=== PATIENT | female | born 1985 | race Caucasian/White ===

== ENCOUNTER 2018-01-04 09:41 | Outpatient (CLI) | payer OTHER | END 2018-01-04 09:42 | disposition home or self-care (01) | LOC: BICULT 09:41 | PROVIDERS: ATTEND Nurse Practitioner Family | DX: M79.621 Pain in right upper arm (principal); N64.89 Other specified disorders of breast; Z74.09 Other reduced mobility ==

== ENCOUNTER 2018-03-27 09:18 | Outpatient (CLI) | payer OTHER ==
--- NOTE | 2018-03-27 11:27 | CT ---
CT OF THE ABDOMEN AND PELVIS WITH IV CONTRAST: Date: 03-27-18 Provided Clinical History: Hematochezia. FINDINGS: Comparison 03-15-12. The visualized lung bases are free of significant opacity. The liver, spleen, pancreas, kidneys and adrenal glands demonstrate an unremarkable CT appearance. There is mural thickening noted involving the descending and sigmoid colon as well as the rectum. The re is no bowel dilatation, inflammatory fat stranding, significant free fluid or lymphnode enlargemen t apparent. The appendix appears normal. There is an unusual enhancement pattern to the uterus, which may be on the basis of phase of menstrua tion. The osseous structures demonstrate no concerning lytic or blastic lesions. IMPRESSION: 1. Apparent mural thickening involving the descending colon, sigmoid colon, and rectum compatible wit h colitis/proctitis. Infectious, inflammatory and ischemic etiologies could be considered. 2. Unusual enhancement pattern to the uterus with prominence of the endometrium. This may be on the b asis of days of menstruation. Consider follow up pelvic ultrasound. POS: JAKI
[2018-03-27] MEDS ORDERED: Iopamidol 370 76% 50 ML VIAL FS ONE (14:06)
[2018-03-27] MEDS ORDERED: Iopamidol 370 76% 100 ML VIAL ONE (14:06)
== END 2018-03-27 09:19 | disposition home or self-care (01) ==
LOC: CT 09:18
PROVIDERS: ATTEND Family Medicine
DX: K92.1 Melena (principal); R10.9 Unspecified abdominal pain; D73.5 Infarction of spleen; R10.2 Pelvic and perineal pain
CPT/HCPCS: 74177

== ENCOUNTER 2018-04-17 08:46 | Outpatient (CLI) | payer OTHER ==
--- NOTE | 2018-04-17 16:01 | NM ---
GASTRIC EMPTYING SCAN: Date: 04/17/18 INDICATION: Vomiting and weight loss. RADIOPHARMACEUTICAL: 1.9 mCi technetium-99m sulfur colloid orally with eggs. FINDINGS: There was 47% emptying at 42 minutes. There was 69% emptying at 80 minutes. There was 79% emptying at 137 minutes. There was 84% emptying at the 181 minute time riri. There was 99% emptying at 238 minut es. T-1/2 is 46 minutes. IMPRESSION: Gastric emptying study as above. POS: JAKI
== END 2018-04-17 08:47 | disposition home or self-care (01) ==
LOC: NM 08:46
PROVIDERS: ATTEND Internal Medicine
DX: R11.2 Nausea with vomiting, unspecified (principal); R63.4 Abnormal weight loss
CPT/HCPCS: 78264; A9541

== ENCOUNTER 2018-09-19 08:49 | Emergency (ER) | payer OTHER ==
[2018-09-19] MEDS ORDERED: Meclizine HCl 25 MG TAB ONE (09:30)
[2018-09-19 09:48] LABS: #Basophils 0.1 thou/uL (0.0-0.2); #Eosinphils 0.1 thou/uL (0.0-0.7); #Lymphocytes 3.3 thou/uL (1.20-3.40); #Monocytes 0.5 thou/uL (0.11-0.59); #Neutrophils 5.7 thou/uL (1.40-6.50); %Basophils 1.1 % (0.0-1.0); %Eosinophils 1.3 % (0.0-10.0); %Lymphocytes 33.8 % (21.0-51.0); %Monocytes 5.5 % (0.0-10.0); %Neutrophils 58.4 % (42.0-75.0); Mean Corpuscular HGB CONC 32.5 g/dL (32.0-36.0); Mean Corpuscular Hemoglobin 29.5 pg (27.0-31.0); Mean Corpuscular Volume 90.9 fL (78.0-98.0); Mean Platelet Volume 7.5 fL (7.4-10.4); Platelet Count 270 thou/uL (130-400); RBC Distribution Width 12.3 % (11.5-14.5); Red Blood Cell (RBC) Count 4.74 mill/uL (4.20-5.40); White Blood Cell (WBC) Count 9.8 thou/uL (4.8-10.8)
[2018-09-19 10:04] LABS: Bilirubin Negative (Negative); Blood, Urine Large (Negative); Clarity CLOUDY (Clear); Glucose, Urine (Dipstick) Negative (Negative); Leukocyte Trace (Negative); Nitrite Negative (Negative); Protein, Urine (Dipstick) Trace mg/dL (Neg-Trace); Specific Gravity, Urine 1.012 (1.002-1.036); Urobilinogen 0.2 mg/dL (0.2-1.0)
[2018-09-19 10:06] LABS: Bacteria/HPF None Seen HPF (None Seen); Hyaline Casts/LPF 0-3 HYALINE CAST LPF (0-3 Hyaline); Pathc Cast-AUWi Flag 0.13 (0-2.49); RBC/HPF GREATER THAN 50-TNTC HPF (0-3)
[2018-09-19 10:07] LABS: Pregnancy Test - Urine (BHCG) Negative (Negative)
[2018-09-19 10:08] LABS: Pregu Control Background? CLEAR/WHITE (CLR/WHITE); Pregu Control Bar Appear? YES (CONTROL BAR); Specific Gravity 1.012 (1.002-1.036)
[2018-09-19 10:13] LABS: ALT (SGPT) 14 U/L (8-55); AST (SGOT) 24 U/L (5-34); Albumin 4.2 g/dL (3.5-5.0); Alkaline Phosphatase 88 U/L (40-150); Anion Gap 11 mmol/L (10-20); BUN (Urea Nitrogen) 8 mg/dL (7.0-18.7); Bilirubin, Total 0.3 mg/dL (0.2-1.2); Calc. Creatinine Clearance 0 mL/min (70-130); Carbon Dioxide 24 mmol/L (22-29); Chloride 109 mmol/L (98-107); Estimated GFR-MDRD Greater than 90; Globulin 3.1 g/dL (2.4-3.5); Glucose 91 mg/dL (70-105); Potassium 3.9 mmol/L (3.5-5.1); Protein, Total 7.3 g/dL (6.0-8.3); Sodium 140 mmol/L (136-145)
--- NOTE | 2018-09-19 10:35 | CT ---
BRAIN CT WITHOUT IV CONTRAST: Date: 09/19/18 HISTORY: Vertigo beginning this morning. Nausea. FINDINGS: Minimal motion artifact through the skull base region. No focal mass or midline shift. No intra or ex tra-axial hemorrhage. Sinuses and mastoids are clear. IMPRESSION: No acute intracranial process. No mass or bleed. POS: [facility]
== END 2018-09-19 11:15 | disposition home or self-care (01) ==
LOC: ERS 08:49
DX: R42 Dizziness and giddiness (principal); N30.90 Cystitis, unspecified without hematuria; F41.9 Anxiety disorder, unspecified
CPT/HCPCS: 36415; 70450; 80053; 81003; 81015; 81025; 84484; 85025; 87086; 93005; 96360

== ENCOUNTER → 2018-11-05 | Emergency (ER) | payer OTHER | LOC: ERS 15:03 | DX: Z53.21 Procedure and treatment not carried out due to patient leaving prior to being seen by health care provider (principal) ==

== ENCOUNTER 2019-06-24 03:22 | Emergency (ER) | payer OTHER ==
[2019-06-24] MEDS ORDERED: hydrALAZINE 25 MG TAB ONE (04:13)
[2019-06-24 04:24] LABS: Bilirubin Negative (Negative); Blood, Urine 3+ (Negative); Clarity Clear (Clear); Glucose, Urine (Dipstick) Normal (Negative); Leukocyte 25 Leu/uL (Negative); Nitrite Negative (Negative); Protein, Urine (Dipstick) Negative (Neg-Trace); RBC/HPF 0-3 HPF (0-3); Squamous Epithelial 0-3 HPF (0-3); Urobilinogen Normal mg/dL (Less than 2); WBC/HPF 0-3 HPF (0-3)
[2019-06-24 04:25] LABS: Bacteria/HPF 1+ HPF (None Seen)
[2019-06-24] MEDS ORDERED: Azithromycin 250 MG TAB ONE (04:52)
[2019-06-24] MEDS ORDERED: cefTRIAXone\\ROCEPHIN 1 GM VIAL ONE (04:52)
[2019-06-24] MEDS ORDERED: Lidocaine 1% PF 5 ML VIAL ONE (04:52)
--- NOTE | 2019-06-24 07:41 | RAD ---
EXAM: Chest PA and lateral: HISTORY: Hypertension COMPARISON: 03/15/2012 FINDINGS: Heart: Normal cardiac silhouette Aorta: Unremarkable Pulmonary vessels: Normal Costophrenic angles: Costophrenic angles are clear. Lungs: No consolidation or masses. Pneumothorax: No pneumothorax Osseous structures: No osseous abnormalities IMPRESSION: No acute cardiopulmonary process.
== END 2019-06-24 05:27 | disposition home or self-care (01) ==
LOC: ERS 03:22
DX: J18.9 Pneumonia, unspecified organism (principal); I10 Essential (primary) hypertension; F41.9 Anxiety disorder, unspecified
CPT/HCPCS: 71046; 81003; 81015; 87804; J0696; J2001

== ENCOUNTER 2022-05-01 07:31 | Outpatient (CLI) | payer BC ==
[2022-05-01] MEDS ORDERED: Iopamidol-370 76% 500 ML 1 ML ONE (14:11)
== END 2022-05-01 07:32 | disposition home or self-care (01) ==
LOC: BICCT 07:31
PROVIDERS: ATTEND Specialist
DX: R10.12 Left upper quadrant pain (principal)
CPT/HCPCS: 74160; Q9967